=== PATIENT | male | born 1960 | race Caucasian/White ===

== ENCOUNTER 2019-10-16 08:45 | Day surgery (SDC) | payer BC ==
[2019-10-14 13:34] VITALS: BMI 22.8
[~2019-10-16 08:45] MED LIST: LACTATED RINGERS 1,000 ML IV SCH; LIDOCAINE 1% (10MG/ML) FOR IV START INTRADERMA PRN
[2019-10-16] MEDS ORDERED: LACTATED RINGERS 1,000 ML IV ONE (09:04)
[2019-10-16 09:08] VITALS: TEMP 98.3
[2019-10-16] MEDS ORDERED: PROPOFOL 10 MG/ML 20 ML VIAL IV ONE (09:42)
--- NOTE | 2019-10-16 09:46 | P.GSHP ---
History of Present Illness H&P Date: 10/16/19 Chief Complaint: Blood in stool, screening colonoscopy This a 58-year-old male referred from Dr. Bryan. Patient rents today for colonoscopy. Patient has never had a colonoscopy before. He's had some rectal bleeding. Past Medical History Additional Past Medical History / Comment(s): positive cologuard, hx low heartrate History of Any Multi-Drug Resistant Organisms: None Reported Additional Past Surgical History / Comment(s): fatty tumor removed Past Anesthesia/Blood Transfusion Reactions: No Reported Reaction Smoking Status: Current some day smoker - Past Family History Mother Family Medical History: No Reported History Medications and Allergies Home Medications Medication Instructions Recorded Confirmed Type No Known Home Medications 10/14/19 10/14/19 History Allergies Allergy/AdvReac Type Severity Reaction Status Date / Time No Known Allergies Allergy Verified 10/14/19 13:28 Surgical - Exam Vital Signs Temp Pulse Resp BP Pulse Ox 98.3 F 55 L 18 148/81 97 10/16/19 09:07 10/16/19 09:07 10/16/19 09:07 10/16/19 09:07 10/16/19 09:07 - General well developed, well nourished, no distress - Eyes PERRL - ENT normal pinna - Respiratory normal expansion - Cardiovascular Rhythm: regular - Abdomen Abdomen: soft, non tender Assessment and Plan Assessment: We'll perform initial screening colonoscopy to evaluate for GI bleed.
--- NOTE | 2019-10-16 09:57 | P.OP ---
Date of Procedure: 10/16/19 Preoperative Diagnosis: GI bleed Screening colonoscopy Postoperative Diagnosis: Diverticulosis Internal hemorrhoids Procedure(s) Performed: Colonoscopy Anesthesia: MAC Surgeon: Victor Manuel Hansen Pathology: none sent Condition: stable Disposition: PACU Description of Procedure: Patient's placed on the endoscopy table in the lateral position. He received IV sedation. Digital rectal exam was performed which revealed internal hemorrhoids. The flexible colonoscope was then placed patient anus and passed throughout the entire colon. The ileocecal valve was visually's. The cecum, ascending and transverse colon appeared normal. In the descending and sigmoid colon there was mild diverticular changes. The scope was then brought back the rectum and this appeared normal. Scope withdrawn for patient. There was no evidence of any GI bleed. His preserve the patient's bleeding is due to internal hemorrhoids
[2019-10-16 10:02] VITALS: RESP 16
[2019-10-16 10:14] VITALS: PULSE 51
[2019-10-16 10:29] VITALS: BP 134/80
== END 2019-10-16 10:50 | disposition home or self-care (01) ==
LOC: ORWHC2ENDO 08:45
PROVIDERS: ATTEND Surgery
DX: K64.8 Other hemorrhoids (principal); K57.30 Diverticulosis of large intestine without perforation or abscess without bleeding; F17.200 Nicotine dependence, unspecified, uncomplicated; Z98.890 Other specified postprocedural states
CPT/HCPCS: 45378; J2704

== ENCOUNTER 2021-05-31 14:01 | Emergency (ER) | payer BC ==
[2021-05-31 14:04] VITALS: BP 176/77; PULSE 76; RESP 18; TEMP 97.7
[2021-05-31] MEDS ORDERED: LIDOCAINE 1% INJ 10MG/ML (20 ML MDV) SQ ONE (14:34)
[2021-05-31] MEDS ORDERED: BACITRACIN OINT 1 EACH PACKET TOPICAL ONE (14:35)
--- NOTE | 2021-05-31 14:46 | ED ---
General Adult HPI - General Chief complaint: Wound/Laceration Stated complaint: Forehead Laceration Time Seen by Provider: 05/31/21 14:08 Source: patient Mode of arrival: ambulatory Limitations: no limitations - History of Present Illness Initial comments: This 60-year-old male presents emergency Department with a laceration to the left side of his forehead. Patient states he was getting into his car earlier today when the car door was shut and hit his forehead, causing a laceration. Patient denies any loss of consciousness, change in vision, lightheadedness, dizziness, vomiting, nausea. Patient states his last tetanus shot was between 5 and 10 years ago, he did refuse to get new tetanus shot here today. Patient states he does not want to get a CAT scan of his head and states he only came here for evaluation of his laceration. Patient states he does have mild dull headache that he rates as 1/10. Patient denies any chest pain, shortness of breath, abdominal pain, change in bowel or bladder, back pain, double/blurred vision, change in appetite. - Related Data Home Medications Medication Instructions Recorded Confirmed No Known Home Medications 10/14/19 10/14/19 Allergies Allergy/AdvReac Type Severity Reaction Status Date / Time No Known Allergies Allergy Verified 05/31/21 15:40 Review of Systems ROS Statement: Those systems with pertinent positive or pertinent negative responses have been documented in the HPI. ROS Other: All systems not noted in ROS Statement are negative. Past Medical History Additional Past Medical History / Comment(s): positive cologuard, hx low heartrate History of Any Multi-Drug Resistant Organisms: None Reported Additional Past Surgical History / Comment(s): fatty tumor removed Past Anesthesia/Blood Transfusion Reactions: No Reported Reaction Smoking Status: Current some day smoker - Past Family History Mother Family Medical History: No Reported History General Exam Limitations: no limitations General appearance: alert, in no apparent distress Head exam: Present: atraumatic, normocephalic, normal inspection (5cm laceration just above the left eye brow on for had) Eye exam: Present: normal appearance, PERRL, EOMI. Absent: scleral icterus, conjunctival injection, periorbital swelling Pupils: Present: normal accommodation ENT exam: Present: normal exam, mucous membranes moist Neck exam: Present: normal inspection, full ROM. Absent: tenderness, meningismus, lymphadenopathy Respiratory exam: Present: normal lung sounds bilaterally. Absent: respiratory distress, wheezes, rales, rhonchi, stridor Cardiovascular Exam: Present: regular rate, normal rhythm, normal heart sounds. Absent: systolic murmur, diastolic murmur, rubs, gallop, clicks GI/Abdominal exam: Present: soft, normal bowel sounds. Absent: distended, tenderness, guarding, rebound, rigid Extremities exam: Present: normal inspection, full ROM, normal capillary refill. Absent: tenderness, pedal edema, joint swelling, calf tenderness Back exam: Present: full ROM. Absent: CVA tenderness (R), CVA tenderness (L), paraspinal tenderness, vertebral tenderness Neurological exam: Present: alert, oriented X3, CN II-XII intact, normal gait Psychiatric exam: Present: normal affect, normal mood Skin exam: Present: warm, dry, intact (5 cm laceration just above left eyebrow on forehead), normal color. Absent: rash Course Vital Signs 05/31/21 14:01 Temperature 97.7 F Pulse Rate 76 Respiratory 18 Rate Blood Pressure 176/77 O2 Sat by Pulse 99 Oximetry Procedures - Laceration Laceration #1 Consent Obtained: verbal consent Indication: laceration Site: face Size (cm): 5 Description: linear Depth: simple, single layer Anesthetic Used: lidocaine 1% Anesthesia Technique: local infiltration Amount (mls): 4 Pre-repair: irrigated extensively, deep structures intact Type of Sutures: nylon Size of Sutures: 5-0 Number of Sutures: 7 Technique: simple, interrupted Patient Tolerated Procedure: well, no complications Medical Decision Making - Medical Decision Making This 60-year-old male presents emergency Department with laceration on patient's forehead just above his left eye. I did recommend computed tomography scan of brain along with updated tetanus shot, however patient did refuse. Seven 5-0 sutures were placed. Bacitracin ointment applied after sutures were placed. Hemostasis was obtained. Patient instructed to have sutures removed in 5 days. Strict return precautions were discussed. Patient verbally agreed to plan. Patient sent home in stable condition. Case discussed in detail with my attending, . Disposition Clinical Impression: Laceration of face Disposition: HOME SELF-CARE Condition: Stable Instructions (If sedation given, give patient instructions): Care For Your Stitches (ED), Head Laceration (ED) Additional Instructions: Please return to the emergency department with any new, worsening, or concerning symptoms. Please return to have sutures removed on 06/05/2021. Follow-up with your primary care provider next 1-2 days. Is patient prescribed a controlled substance at d/c from ED?: No Referrals: Katelynn Whitehead DO [Primary Care Provider] - 1-2 days Time of Disposition: 15:40
== END 2021-05-31 15:55 | disposition home or self-care (01) ==
LOC: EC 14:01
DX: S01.81XA Laceration without foreign body of other part of head, initial encounter (principal); F17.200 Nicotine dependence, unspecified, uncomplicated; W22.8XXA Striking against or struck by other objects, initial encounter
CPT/HCPCS: 99283; 12013; J2001